=== PATIENT | male | born 2000 | race Hispanic/Latino ===

== ENCOUNTER 2020-08-05 15:42 | Emergency (ER) | payer OTHER | END 2020-08-05 16:20 | LOC: NAV ERS 15:42 | DX: Z04.1 Encounter for examination and observation following transport accident (principal); F17.210 Nicotine dependence, cigarettes, uncomplicated; V89.2XXA Person injured in unspecified motor-vehicle accident, traffic, initial encounter | CPT/HCPCS: 99283 ==

== ENCOUNTER 2021-02-04 15:47 | Emergency (ER) | payer OTHER, SELFPAY | END 2021-02-04 16:24 | LOC: NAV ERS 15:47 | DX: S50.312A Abrasion of left elbow, initial encounter (principal); S80.211A Abrasion, right knee, initial encounter; Z02.89 Encounter for other administrative examinations; F17.210 Nicotine dependence, cigarettes, uncomplicated; W19.XXXA Unspecified fall, initial encounter | CPT/HCPCS: 99283 ==

== ENCOUNTER 2021-11-15 22:06 | Emergency (ER) | payer SELFPAY ==
[2021-11-15] MEDS ORDERED: Boostrix 0.5 ML (Tdap) VIAL ONE (22:42)
== END 2021-11-15 22:50 ==
LOC: NAV ERS 22:06
DX: S01.01XA Laceration without foreign body of scalp, initial encounter (principal); X99.8XXA Assault by other sharp object, initial encounter; Y92.149 Unspecified place in prison as the place of occurrence of the external cause; Z23 Encounter for immunization; Z87.891 Personal history of nicotine dependence
CPT/HCPCS: 12002; 90471; 90715

== ENCOUNTER 2025-08-02 17:08 | Emergency (ER) | payer OTHER, SELFPAY ==
[2025-08-02] MEDS ORDERED: Acetaminophen 500 MG TAB ONE (18:13)
[2025-08-02 18:25] LABS: Glucose, Urine (Dipstick) Negative (Negative); Leukocyte Negative (Negative); Protein, Urine (Dipstick) Negative (Neg-Trace); Specific Gravity, Urine 1.015 (1.005-1.030)
[2025-08-02 18:35] LABS: Cocaine Metabolite Screen Negative (Negative); THC/Cannabinoid Screen PRELIM POSITIVE (Negative); Tricyclic Screen Negative (Negative)
[2025-08-02 18:35] LABS: CAUTI Indications for Culture Fever or rigors; RBC/HPF 0-3 HPF (0-3); WBC/HPF 0-3 HPF (0-3)
[2025-08-02 18:36] LABS: Urine Culture Reflex No No
[2025-08-02 18:37] LABS: Hematocrit 40.5 % (42.0-52.0); Hemoglobin 14.3 g/dL (14.0-18.0); Mean Corpuscular Hemoglobin 29.8 pg (27.0-31.0); Mean Corpuscular Volume 84.4 fl (78.0-98.0); Platelet Count 259 10x3/uL (130-400); Red Blood Cell (RBC) Count 4.80 mill/uL (4.70-6.10); White Blood Cell (WBC) Count 6.3 10x3/uL (4.8-10.8)
[2025-08-02 18:38] LABS: Troponin I Less than 0.010 ng/mL (< 0.028)
[2025-08-02 18:43] LABS: Platelet Adequacy Comment Appears Adequate
[2025-08-02 18:55] LABS: ALT (SGPT) 76 U/L (Less than 45); AST (SGOT) 42 U/L (11-34); Albumin 4.6 g/dL (3.1-4.5); Alkaline Phosphatase 51 U/L (40-110); Anion Gap 15 mmol/L (10-20); BUN (Urea Nitrogen) 10 mg/dL (8.9-20.6); Bilirubin, Total 0.3 mg/dL (0.3-1.2); Calc. Creatinine Clearance 0 mL/min (70-130); Calcium 9.2 mg/dL (7.8-10.44); Carbon Dioxide 24 mmol/L (22-29); Chloride 105 mmol/L (98-107); Globulin 3.0 g/dL (2.4-3.5); Glucose 128 mg/dL (70-105); Potassium 4.2 mmol/L (3.5-5.1); Sodium 140 mmol/L (136-145)
== END 2025-08-02 19:28 ==
LOC: NAV ERS 17:08
DX: I10 Essential (primary) hypertension (principal); R51.9 Headache, unspecified; H53.9 Unspecified visual disturbance; R00.2 Palpitations; F12.10 Cannabis abuse, uncomplicated; E66.9 Obesity, unspecified; F17.210 Nicotine dependence, cigarettes, uncomplicated; Z79.899 Other long term (current) drug therapy
CPT/HCPCS: 70450; 80053; 80306; 81001; 84443; 84484; 85025; 93005; 94760; J7030